=== PATIENT | female | born 1990 | race Caucasian/White ===

== ENCOUNTER 2017-07-31 17:59 | Emergency (ER) | payer MEDICAID ==
--- NOTE | 2017-07-31 18:25 | EDM.PDOC ---
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 . History of miscarriage x 1. Not taking vitamin. Youngest baby about 2 years old. Was moving this week with heavy lifting of boxes. No cramping. No intercourse today. Steady boyfriend. No urinary symptoms. Ultrasound on 07/02/17 was normal. LMP . Missed her OB appt yesterday. Onset: Today, Sudden Onset Date: 07/31/17 Onset Time: 16:00 Duration: Intermittent Severity: Mild Improves with: Reports: None Worsens with: Reports: None Context: Reports: Activity Associated Symptoms: Reports: No Other Symptoms - Related Data Allergies Allergy/AdvReac Type Severity Reaction Status Date / Time No Known Allergies Allergy Verified 07/31/17 18:14 ED ROS GENERAL - Review of Systems Review Of Systems: See Below Constitutional: Reports: No Symptoms HEENT: Reports: No Symptoms Respiratory: Reports: No Symptoms Cardiovascular: Reports: No Symptoms GI/Abdominal: Reports: No Symptoms : Reports: Other (bleeding vaginally) Musculoskeletal: Reports: No Symptoms Skin: Reports: No Symptoms ED EXAM - Physical Exam Exam: See Below Exam Limited By: No Limitations General Appearance: Mild Distress Nose: Normal Inspection, Normal Mucosa, No Blood Throat/Mouth: Normal Inspection, Normal Lips, Normal Teeth, Normal Gums, Normal Oropharynx, Normal Voice, No Airway Compromise Head: Atraumatic, Normocephalic Respiratory/Chest: No Respiratory Distress, Lungs Clear, Normal Breath Sounds, No Accessory Muscle Use, Chest Non-Tender Cardiovascular: Normal Peripheral Pulses, Regular Rate, Rhythm, No Edema, No Gallop, No JVD, No Murmur, No Rub GI/Abdominal Exam: Normal Bowel Sounds, Soft, Non-Tender, No Organomegaly, No Distention, No Abnormal Bruit, No Mass, Pelvis Stable (Female) Exam: Tissue Present in Cervix/Vagina (bleeding noted on exam in the cervical os), Vaginal Bleeding Course - Vital Signs Last Recorded V/S: Last Vital Signs Temp 97.4 F 09/01/17 18:30 Pulse 96 07/31/17 18:30 Resp 16 07/31/17 18:30 BP 125/77 07/31/17 18:30 Pulse Ox 99 07/31/17 18:30 - Orders/Labs/Meds Orders: Active Orders 24 hr Category Date Time Status OB 1st Tri Sgl 1st Gest [US] Stat Exams 07/31/17 18:14 Ordered PATIENT RETYPE [BBK] Stat Lab 07/31/17 18:15 Results TYPE AND SCREEN [BBK] Stat Lab 07/31/17 18:15 Results Labs: Laboratory Tests 07/31/17 07/31/17 07/31/17 Range/Units 18:15 18:27 18:27 WBC 11.1 H (4.5-11.0) K/uL RBC 4.26 (3.30-5.50) M/uL Hgb 13.7 (12.0-15.0) g/dL Hct 40.4 (36.0-48.0) % MCV 95 (80-98) fL MCH 32 H (27-31) pg MCHC 34 (32-36) % Plt Count 302 (150-400) K/uL Neut % (Auto) 72 H (36-66) % Lymph % (Auto) 22 L (24-44) % [place] % (Auto) 5 (2-6) % Eos % (Auto) 1 L (2-4) % Baso % (Auto) 0 (0-1) % HCG, Quant [id number] H (0-6) mIU/mL Blood Type O POSITIVE Gel Antibody Screen Negative Departure - Departure Time of Disposition: 19:50 Disposition: Home, Self-Care 01 Condition: Fair Clinical Impression: Threatened Subchorionic hematoma in first trimester Qualifiers: Fetus number: single or unspecified fetus Qualified Code(s): O41.8X10 - Other specified disorders of amniotic fluid and membranes, first trimester, not applicable or unspecified; O46.8X1 - Other antepartum hemorrhage, first trimester - Discharge Information Referrals: PCP,None [Primary Care Provider] - Forms: ED Department Discharge Additional Instructions: CBC reviewed. Quantitative HCG at 100,000+. Blood type A+. Pelvic ultrasound obtained showing a single viable gestation of 12 weeks 3 days with large irregular subchorionic hemorrhage. Discussed the implications of this with the pt. She will need to be on vaginal rest, and followup with OB provider for serial ultrasounds and quantitative HCG levels. She and significant other voice understanding. Pt will resume vitamin. - Problem List & Annotations (1) Subchorionic hematoma in first trimester SNOMED Code(s): 608107547 Code(s): O41.8X10 - OTH DISRD OF AMNIOTIC FLUID AND MEMBRNS, FIRST TRI, UNSP ; O46.8X1 - OTHER ANTEPARTUM HEMORRHAGE, FIRST TRIMESTER Status: Acute Priority: Medium Current Visit: Yes Qualifiers: Fetus number: single or unspecified fetus Qualified Code(s): O41.8X10 - Other specified disorders of amniotic fluid and membranes, first trimester, not applicable or unspecified; O46.8X1 - Other antepartum hemorrhage, first trimester - Problem List Review Problem List Initiated/Reviewed/Updated: Yes - My Orders Last 24 Hours: My Active Orders 07/31/17 18:14 OB 1st Tri Sgl 1st Gest [US] Stat 07/31/17 18:15 PATIENT RETYPE [BBK] Stat TYPE AND SCREEN [BBK] Stat - Assessment/Plan Last 24 Hours: My Active Orders 07/31/17 18:14 OB 1st Tri Sgl 1st Gest [US] Stat 07/31/17 18:15 PATIENT RETYPE [BBK] Stat TYPE AND SCREEN [BBK] Stat
[2017-07-31 20:05] VITALS: BP 104/59
== END 2017-07-31 19:57 | disposition home or self-care (01) ==
LOC: JP.ED 17:59
DX: O46.8X1 Other antepartum hemorrhage, first trimester (principal); O41.8X10 Other specified disorders of amniotic fluid and membranes, first trimester, not applicable or unspecified; Z3A.12 12 weeks gestation of pregnancy
CPT/HCPCS: 36415; 76801; 84702; 85025; 86850; 86900; 86901; 99284; 99284-25

== ENCOUNTER 2017-10-06 19:03 | Emergency (ER) | payer MEDICAID ==
[2017-10-06 19:35] VITALS: BP 115/64
[2017-10-06] MEDS ORDERED: Acetaminophen/oxyCODONE 325-5 MG Tab PO ONE (19:40)
[2017-10-06] MEDS ORDERED: Lidocaine 4% Top Soln 50 ML Bottle MUCMEM ONE (19:46)
--- NOTE | 2017-10-06 19:46 | EDM.PDOC ---
ED HPI GENERAL MEDICAL PROBLEM - General Chief Complaint: ENT Problem Stated Complaint: TOOTH PAIN Time Seen by Provider: 10/06/17 19:41 Source of Information: Reports: Patient History Limitations: Reports: No Limitations - History of Present Illness INITIAL COMMENTS - FREE TEXT/NARRATIVE: pt arrived with pain in the rt upper molar area. She has a dental visit in [place]. She hs a dental plan but not until Nov, She is having a great deal of pain and is not able to rest. Onset: Gradual, Other ( getting worse. 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 - Infectious Disease History Infectious Disease History: Reports: Chicken Pox - Past Surgical History Female Surgical History: Reports: D&C Social & Family History - Tobacco Use Smoking Status *Q: Current Every Day Smoker Years of Tobacco use: 10 Packs/Tins Daily: 0.5 Second Hand Smoke Exposure: Yes - Caffeine Use Caffeine Use: Reports: Soda - Recreational Drug Use Recreational Drug Use: No ED ROS ENT - Review of Systems Review Of Systems: See Below Constitutional: Reports: No Symptoms HEENT: Reports: No Symptoms Respiratory: Reports: No Symptoms Cardiovascular: Reports: No Symptoms Endocrine: Reports: No Symptoms GI/Abdominal: Reports: No Symptoms : Reports: No Symptoms Musculoskeletal: Reports: No Symptoms Skin: Reports: No Symptoms ED EXAM, ENT - Physical Exam Exam: See Below Text/Narrative:: pt arrived with pain in the rt upper molar area. She is very uncomfortable. Exam Limited By: No Limitations General Appearance: Alert, Moderate Distress Ears: Normal TMs Nose: Normal Inspection Mouth/Throat: Dental Pain, Dental Tenderness Head: Atraumatic Neck: Lymphadenopathy (R), Lymphadenopathy (L) Respiratory/Chest: No Respiratory Distress Cardiovascular: Regular Rate, Rhythm GI/Abdominal: Soft, Non-Tender Rectal (Female) Exam: Deferred Back: Normal Inspection Extremities: Normal Inspection Course - Vital Signs Last Recorded V/S: Last Vital Signs Temp 36.0 C 10/06/17 19:19 Pulse 88 10/06/17 19:19 Resp 16 10/06/17 19:19 BP 115/64 10/06/17 19:19 Pulse Ox 97 10/06/17 19:19 - Orders/Labs/Meds Orders: Active Orders 24 hr Category Date Time Status Acetaminophen/oxyCODONE [Percocet 325-5 MG] Med 10/06/17 19:40 Once 1 tab PO ONETIME ONE Medication Orders Oxycodone/Acetaminophen (Percocet 325-5 Mg) 1 tab PO ONETIME ONE Stop: 10/06/17 19:41 Meds: Medications Generic Name Dose Route Start Last Admin Trade Name Freq PRN Reason Stop Dose Admin Oxycodone/Acetaminophen 1 tab 10/06/17 19:40 Percocet 325-5 Mg PO 10/06/17 19:41 ONETIME ONE - Re-Assessments/Exams Free Text/Narrative Re-Assessment/Exam: 10/06/17 19:45 pt had a lidocaine pack applied and was given a percocet 5/325. Departure - Departure Time of Disposition: 19:46 Disposition: Home, Self-Care 01 Condition: Fair Clinical Impression: Dental infection - Discharge Information Referrals: Enedina Rojo RN [Primary Care Provider] - Care Plan Goals: resume the amoxicillin 500mg tid. norco 5/325 q6h prn for pain, call [facility] and see if they can get her in before Nov. If they can,t then a referal for [facility] will be done, use lidocaine packs on the site for pain. - My Orders Last 24 Hours: My Active Orders 10/06/17 19:40 Acetaminophen/oxyCODONE [Percocet 325-5 MG] 1 tab PO ONETIME ONE - Assessment/Plan Last 24 Hours: My Active Orders 10/06/17 19:40 Acetaminophen/oxyCODONE [Percocet 325-5 MG] 1 tab PO ONETIME ONE
== END 2017-10-06 20:06 | disposition home or self-care (01) ==
LOC: JP.ED 19:03
DX: K04.7 Periapical abscess without sinus (principal); F17.210 Nicotine dependence, cigarettes, uncomplicated
CPT/HCPCS: 99283; A9270